=== PATIENT | male | born 1940 | race Caucasian/White ===

== ENCOUNTER → 2017-06-16 | Outpatient (CLI) | payer MEDICARE, OTHER ==
[2015-12-07 15:12] VITALS: BP 144/82
[~2017-06-16] MED LIST: ASPI-482 PO; CITA40TA5 PO; DIPH50CA PO; FURO20TA3 PO; LISI10TA2 PO; SIMV20TA3 PO; SULF1TAB24 PO; TAMS0.4C97 PO; WARF-31 PO
--- NOTE | 2017-06-17 08:50 | RAD ---
Chest, 2 views, 06/16/2017: History: Respiratory difficulty Comparison is made to a study from 09/25/2014. The heart size and pulmonary vascularity are within normal limits. No pulmonary infiltrate is seen. There is a calcified granuloma in the right base. There is no evidence of pleural fluid. Moderate spurring is present in the spine. IMPRESSION: No acute cardiopulmonary abnormality is detected.
== END | disposition home or self-care (01) ==
LOC: RAD 16:43
PROVIDERS: ATTEND Nurse Practitioner Gerontology
DX: J84.10 Pulmonary fibrosis, unspecified (principal)
CPT/HCPCS: 71046

== ENCOUNTER 2021-04-01 16:22 | Emergency (ER) | payer MEDICARE, OTHER ==
[~2021-04-01] VITALS: Ht 180.3 cm; Wt 105.0 kg
[~2021-04-01 16:22] MED LIST changes: -CITA40TA5 PO; +CITA40TA6 PO; -DIPH50CA PO; +DIPH50CA16 PO; +LISI10TA16 PO; -LISI10TA2 PO; +SIMV20TA18 PO; -SIMV20TA3 PO
[2021-04-01] MEDS ORDERED: ACETAMINOPHEN 500 MG TABLET PO ONE (18:45)
[2021-04-01] MEDS ORDERED: ONDANSETRON ODT 4 MG TAB.RAPDIS PO ONE (18:45)
[2021-04-01 18:49] LABS: INFLUENZA A PATIENT NEGATIVE (NEGATIVE); INFLUENZA B PATIENT NEGATIVE (NEGATIVE)
--- NOTE | 2021-04-01 19:15 | RAD ---
XR CHEST 1V CLINICAL INDICATIONS: Reason: fever, cough, weakness times 3 days / Spl. Instructions: / History: COMPARISON: June 16, 2017. Findings: No acute lung infiltrate or pleural effusion or pulmonary edema or lung mass or pneumothora x is seen. The heart size, pulmonary vasculature, mediastinum and both am[place] are unremarkable. IMPRESSION: No acute radiographic abnormality is seen. Electronically signed by: Jaime Cooper MD (04/01/2021 7:13 PM) [id number]
--- NOTE | 2021-04-01 21:05 | PHYS DOC ---
Past History Past Medical History: DVT, Hypertension (LIZBETH CROWLEY APRN) Past Surgical History: Appendectomy, Cervical Fusion, Cholecystectomy, Lumbar Laminectomy, TURP (LIZBETH CROWLEY APRN) Alcohol Use: None Drug Use: None (LIZBETH CROWLEY APRN) Adult General Chief Complaint Chief Complaint: NAUSEA/VOMITING/DIARRHEA HPI HPI Patient is a 81-year-old male patient presented to the ED today complaining of general malaise, symptoms began 2 days ago. Also complaining of a fever and nausea that began today. Patient denies any chest pain, shortness of breath. 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 He states that he already called the mill roll operator who requested him to stop taking doxycycline. (LIZBETH CROWLEY APRN) Review of Systems Review of Systems Constitutional: Reports fever and malaise denies fever or chills [] Eyes: Denies change in visual acuity, redness, or eye pain [] HENT: Denies nasal congestion or sore throat [] Respiratory: Denies cough or shortness of breath [] Cardiovascular: No additional information not addressed in HPI [] GI: Reports nausea. Denies abdominal pain, vomiting, bloody stools or diarrhea [] : Denies dysuria or hematuria [] Musculoskeletal: Denies back pain or joint pain [] Integument: Reports tumor removal from the scalp Neurologic: Denies headache, focal weakness or sensory changes [] All other systems were reviewed and found to be within normal limits, except as documented in this note. (LIZBETH CROWLEY APRN) Current Medications Current Medications Current Medications Medications (Trade) Dose Ordered Sig/Laura Start Time Stop Time Status Last Admin Dose Admin Acetaminophen (Tylenol) 1,000 mg 1X ONCE 04/01/21 18:45 04/01/21 18:46 DC 04/01/21 19:10 1,000 MG Ondansetron HCl (Zofran Odt) 4 mg 1X ONCE 04/01/21 18:45 04/01/21 18:46 DC 04/01/21 19:10 4 MG (LIZBETH CROWLEY ROLL LINE OPERATOR) Allergies Allergies Allergies Coded Allergies Type Severity Reaction Last Updated Verified latex Allergy Intermediate Hives 04/01/21 Yes levofloxacin Allergy Intermediate hives 04/01/21 No morphine Allergy Intermediate hives 04/01/21 No (LIZBETH CROWLEY ROLL LINE OPERATOR) Physical Exam Physical Exam Constitutional: Well developed, well nourished, no acute distress, non-toxic appearance. [] HENT: Normocephalic, atraumatic, bilateral external ears normal, oropharynx moist, no oral exudates, nose normal. [] Eyes: PERRLA, EOMI, conjunctiva normal, no discharge. [] Neck: Normal range of motion, no tenderness, supple, no stridor. [] Cardiovascular:Heart rate regular rhythm, no murmur [] Lungs & Thorax: Bilateral breath sounds clear to auscultation [] Abdomen: Bowel sounds normal, soft, no tenderness, no masses, no pulsatile masses. [] Skin: Right frontal scalp with a well approximated laceration site with stefan and no signs of infection Back: No tenderness, no CVA tenderness. [] Extremities: No tenderness, no cyanosis, no clubbing, ROM intact, no edema. [] Neurologic: Alert and oriented X 3, normal motor function, normal sensory function, no focal deficits noted. [] Psychologic: Affect normal, judgement normal, mood normal. [] (LIZBETH CROWLEY APRN) Current Patient Data Vital Signs Vital Signs Date Time Temp Pulse Resp B/P (MAP) Pulse Ox O2 Delivery O2 Flow Rate FiO2 04/01/21 20:47 98.6 04/01/21 19:12 107 19 137/70 (92) 95 Room Air Lab Results Laboratory Tests Test 04/01/21 18:02 Influenza Type A (Rapid) Negative (NEGATIVE) Influenza Type B (Rapid) Negative (NEGATIVE) (LIZBETH CROWLEY APRN) EKG EKG [] (LIZBETH CROWLEY APRN) Radiology/Procedures Radiology/Procedures []PROCEDURE: CHEST AP ONLY XR CHEST 1V CLINICAL INDICATIONS: Reason: fever, cough, weakness times 3 days / Spl. Instructions: / History: COMPARISON: June 16, 2017. Findings: No acute lung infiltrate or pleural effusion or pulmonary edema or lung mass or pneumothorax is seen. The heart size, pulmonary vasculature, mediastinum and both [place] are unremarkable. IMPRESSION: No acute radiographic abnormality is seen. Electronically signed by: Tobias Cooper MD (04/01/2021 7:13 PM) [id number] DICTATED AND SIGNED BY: TOBIAS COOPER MD DATE: 04/01/211910 CC: LIZBETH CROWLEY APRN; JOAN PATEL MD ~MTH0 0 (LIZBETH CROWLEY APRN) Heart Score C/O Chest Pain: N/A Risk Factors: Risk Factors: DM, Current or recent (<one month) smoker, HTN, HLP, family history of CAD, obesity. Risk Scores: Risk Factors: DM, Current or recent (<one month) smoker, HTN, HLP, family history of CAD, obesity. (LIZBETH CROWLEY APRN) Course & Med Decision Making Course & Med Decision Making Pertinent Labs and Imaging studies reviewed. (See chart for details) This is a 81-year-old male patient presenting to the ED today complaining of malaise that began 2 days ago, fever and nausea that began today. Vitals on arrival to the ED temperature 102.0, heart rate 102, respiration 24, blood pressure 105/83, O2 sats 96% patient is given Tylenol and Zofran in the ED. Chest x-ray negative for any acute findings Negative influenza A and B PCR COVID test pending, labs pending. Patient and would like to go home. His temperature has come down and he is feeling better. He states he is not able to wait for the lab work because he is tired. He was discharged home. Return precautions provided. (LIZBETH CROWLEY APRN) Course & Med Decision Making Did not see or evaluate patient.. Did not discuss patient with LOGISTICS ANALYST. Agree with LOGISTICS ANALYST's work-up and disposition per note (TENA POOL MD) Dragon Disclaimer Dragon Disclaimer This electronic medical record was generated, in whole or in part, using a voice recognition dictation system. (LIZBETH CROWLEY APRN) Departure Departure: Impression: Primary Impression: Fever Additional Impressions: Malaise and fatigue Nausea & vomiting Disposition: HOME / SELF CARE / HOMELESS Condition: STABLE Referrals: JOAN PATEL MD (PCP) follow up in one week Patient Instructions: Fatigue, Fever, Adult, [id number], Viral Infections Additional Instructions: You were evaluated in the emergency room. You were tested for COVID19, your rapid COVID test is negative, your PCR COVID test is pending, we will call you when results are available. Your Chest x-ray is negative for pneumonia. You are negative for influenza A and B. Please take Tylenol or Motrin as needed for fever. Follow-up with your doctor in the course of this week Problem Qualifiers Primary Impression: Fever Fever type: unspecified Qualified Codes: R50.9 - Fever, unspecified Additional Impressions: Nausea & vomiting Vomiting type: unspecified Qualified Codes: R11.2 - Nausea with vomiting, unspecified LIZBETH CROWLEY APRN Apr 01, 2021 21:05 TENA POOL MD Apr 01, 2021 23:27
[2021-04-01 21:50] VITALS: BP 134/72
[2021-04-01 22:01] LABS: BASO % 1 % (0-3); EOS % 0 % (0-3); HEMATOCRIT 40.4 % (39.0-53.0); HEMOGLOBIN 12.8 g/dL (13.0-17.5); LYMPH # 1.3 x10^3/uL (1.0-4.8); LYMPH % 21 % (24-48); MEAN CORPUSCULAR HEMOGLOBIN 26 pg (25-35); MEAN CORPUSCULAR HGB CONC 32 g/dL (31-37); MEAN CORPUSCULAR VOLUME 82 fL (79-100); MONO # 0.8 x10^3/uL (0.0-1.1); MONO % 13 % (0-9); NEUT % 65 % (31-73); PLATELET COUNT 170 x10^3/uL (140-400); RED BLOOD COUNT 4.91 x10^6/uL (4.30-5.70); RED CELL DISTRIBUTION WIDTH 15.8 % (11.5-14.5); WHITE BLOOD COUNT 6.1 x10^3/uL (4.0-11.0)
[2021-04-01 22:06] LABS: BILIRUBIN,URINE NEG (NEG); CLARITY,URINE HAZY; COLOR,URINE YELLOW; GLUCOSE,URINE NEG (NEG)
[2021-04-01 22:07] LABS: BACTERIA,URINE FEW /HPF (0-FEW); NITRITE,URINE NEG (NEG); RBC,URINE >40 /HPF (0-2); UROBILINOGEN,URINE 0.2 mg/dL (0.2 mg/dL)
[2021-04-01 22:12] LABS: CALCIUM 8.9 mg/dL (8.5-10.1); CREATININE 1.2 mg/dL (0.7-1.3); GFR 57.8; POTASSIUM 4.4 mmol/L (3.5-5.1)
[2021-04-01 22:17] LABS: ALBUMIN 3.6 g/dL (3.4-5.0); TOTAL BILIRUBIN 0.5 mg/dL (0.2-1.0); TOTAL PROTEIN 7.2 g/dL (6.4-8.2)
== END 2021-04-01 22:12 | disposition home or self-care (01) ==
LOC: ER 16:22
DX: R11.2 Nausea with vomiting, unspecified (principal); R53.81 Other malaise; R53.83 Other fatigue; R50.9 Fever, unspecified; I10 Essential (primary) hypertension; Z20.822 Contact with and (suspected) exposure to COVID-19; Z86.718 Personal history of other venous thrombosis and embolism; Z91.040 Latex allergy status; Z88.1 Allergy status to other antibiotic agents; Z88.5 Allergy status to narcotic agent
CPT/HCPCS: 36415; 71045; 80053; 81001; 83605; 85025; 87040; 87426; 87804; 99284; C9803; Q0162; U0003

== ENCOUNTER 2021-04-29 09:14 | Emergency (ER) | payer MEDICARE, OTHER ==
[~2021-04-29] VITALS: Ht 182.9 cm; Wt 104.0 kg
[2021-04-29] MEDS ORDERED: valACYclovir 500 MG TABLET. PO STA (09:34)
--- NOTE | 2021-04-29 09:36 | PHYS DOC ---
Past History Past Medical History: DVT, Hypertension Past Surgical History: Appendectomy, Cervical Fusion, Cholecystectomy, Lumbar Laminectomy, TURP Alcohol Use: None Drug Use: None General Adult EDM: Chief Complaint: NEURO SYMPTOMS/DEFICITS HPI: HPI: 81-year-old male presents with right-sided facial droop. Patient developed a sore on the left side of his outer lip 2 days ago, on Friday. 1 hour prior to arrival, the patient seemed to have a right-sided facial droop. It is also appeared as though his right eye was swollen. Patient denies any change in sensation. He has no loss of strength in his upper or lower extremities. He states feeling well otherwise. Review of Systems: Review of Systems: Constitutional: Denies fever or chills Eyes: Denies change in visual acuity HENT: Denies nasal congestion or sore throat Respiratory: Denies cough or shortness of breath Cardiovascular: Denies chest pain or edema GI: Denies abdominal pain, nausea, vomiting, bloody stools or diarrhea : Denies dysuria Musculoskeletal: Denies back pain or joint pain Integument: Lesion on the left outer lip Neurologic: Right-sided facial droop. denies headache, focal weakness or sensory changes Endocrine: Denies polyuria or polydipsia Lymphatic: Denies swollen glands Psychiatric: Denies depression or anxiety Allergies: Allergies: Allergies Coded Allergies Type Severity Reaction Last Updated Verified latex Allergy Intermediate Hives 04/01/21 Yes levofloxacin Allergy Intermediate hives 04/01/21 No morphine Allergy Intermediate hives 04/01/21 No Physical Exam: PE: Constitutional: Well developed, well nourished, no acute distress, non-toxic appearance. [] HENT: Normocephalic, atraumatic, bilateral external ears normal, oropharynx moist, no oral exudates, nose normal. [] Eyes: PERRLA, EOMI, conjunctiva normal, no discharge. [] Neck: Normal range of motion, no tenderness, supple, no stridor. [] Cardiovascular: Heart rate regular rhythm, no murmur [] Lungs & Thorax: Bilateral breath sounds clear to auscultation [] Abdomen: Bowel sounds normal, soft, no tenderness, no masses, no pulsatile masses. [] Skin: Warm, dry, no erythema, no rash. [] Back: No tenderness, no CVA tenderness. [] Extremities: No tenderness, no cyanosis, no clubbing, ROM intact, no edema. [] Neurologic: Right-sided facial droop, right eye not blinking. Alert and oriented X 3, normal motor function, normal sensory function, no focal deficits noted. [] Psychologic: Affect normal, judgement normal, mood normal. [] EKG: EKG: [] Radiology/Procedures: Radiology/Procedures: [] Impressions: STUDY: CT head without contrast INDICATION: Code stroke. Neurologic deficits. COMPARISON: 09/23/2018 TECHNIQUE: Axial CT imaging through the head without the use of intravenous c ontrast. Sagittal and coronal reformats were obtained. One or more of the following individualized dose reduction techniques were utilized for this examination: 1. Automated exposure control 2. Adjustment of the mA and/or kV according to patient size 3. Use of iterative reconstruction technique. FINDINGS: No acute intracranial hemorrhage. No large area of ramsay-white matter di fferentiation loss. The deep ramsay nuclei are well delineated. No mass effect, midline shift or hydrocephalus. Age-appropriate parenchymal volume loss. Intracranial calcific atherosclerosis. Intact calvarium. Unremarkable mastoid air cells. Partially imaged left maxillary sinus retention cyst. IMPRESSION: No acute intracranial hemorrhage or CT evidence for an acute cortical infa rction. FOR INTERNAL CODING PURPOSES Critical result: Findings discussed with MIRTHA COELLO on 04/29/2021 at 9:38 AM. RESULT CODE: (C) Electronically signed by: MERY FARRELL MD (04/29/2021 9:40 AM) [id number] DICTATED AND SIGNED BY: MERY FARRELL MD DATE: 04/29/21 0935 CC: MIRTHA COELLO DO; JOAN PATEL MD ~MTH0 0 Heart Score: C/O Chest Pain: N/A Risk Factors: Risk Factors: DM, Current or recent (<one month) smoker, HTN, HLP, family history of CAD, obesity. Risk Scores: Score 0 - 3: 2.5% MACE over next 6 weeks - Discharge Home Score 4 - 6: 20.3% MACE over next 6 weeks - Admit for Clinical Observation Score 7 - 10: 72.7% MACE over next 6 weeks - Early Invasive Strategies Course & Med Decision Making: Course & Med Decision Making Pertinent Labs and Imaging studies reviewed. (See chart for details) Patient appears to have a lesion of herpes simplex on the left lower lip. 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 Head CT is negative for acute findings. Patient has no other focal findings to indicate stroke. I will treat his herpes simplex with Valtrex in the ER and at home. We will also discharge him with prednisone to help with his Randall's palsy symptoms. The patient had sutures from a skin cancer removal in his left forearm. They requested that I remove them. I did remove a 4 cm running suture from the left forearm without complication. He is stable for discharge at this time. [] Dragon Disclaimer: Dragon Disclaimer: This electronic medical record was generated, in whole or in part, using a voice recognition dictation system. 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
--- NOTE | 2021-04-29 09:42 | RAD ---
STUDY: CT head without contrast INDICATION: Code stroke. Neurologic deficits. COMPARISON: 09/23/2018 TECHNIQUE: Axial CT imaging through the head without the use of intravenous contrast. Sagittal and co yoni reformats were obtained. One or more of the following individualized dose reduction techniques were utilized for this examinat ion: 1. Automated exposure control 2. Adjustment of the mA and/or kV according to patient size 3. Use of iterative reconstruction technique. FINDINGS: No acute intracranial hemorrhage. No large area of ramsay-white matter differentiation loss. The deep g ray nuclei are well delineated. No mass effect, midline shift or hydrocephalus. Age-appropriate parenchymal volume loss. Intracranial calcific atherosclerosis. Intact calvarium. Unremarkable mastoid air cells. Partially imaged left maxillary sinus retention cys t. IMPRESSION: No acute intracranial hemorrhage or CT evidence for an acute cortical infarction. FOR INTERNAL CODING PURPOSES Critical result: Findings discussed with MIRTHA COELLO on 04/29/2021 at 9:38 AM. RESULT CODE: (C) Electronically signed by: MERY FARRELL MD (04/29/2021 9:40 AM) [id number]
[2021-04-29 10:00] VITALS: BP 139/77
[2021-04-29] MEDS ORDERED: VALA10005 PO (10:52)
[2021-04-29] MEDS ORDERED: PRED50TA PO (10:52)
== END 2021-04-29 10:59 | disposition home or self-care (01) ==
LOC: ER 09:14
DX: Z48.01 Encounter for change or removal of surgical wound dressing (principal); G51.0 Bell's palsy; B00.9 Herpesviral infection, unspecified; I10 Essential (primary) hypertension; Z86.718 Personal history of other venous thrombosis and embolism; Z91.040 Latex allergy status; Z88.1 Allergy status to other antibiotic agents; Z88.5 Allergy status to narcotic agent
CPT/HCPCS: 70450; 99284